=== PATIENT | female | born 1995 | race Caucasian/White ===

== ENCOUNTER 2018-10-28 17:39 | Inpatient (IN) | payer OTHER ==
[~2018-10-28] VITALS: Ht 170.2 cm; Wt 135.0 kg
[2018-10-28 18:14] VITALS: Ht 170.2 cm; Wt 135.0 kg
--- NOTE | 2018-10-28 19:39 | HP ---
Date/Time of Note Date/Time of Note DATE: 10/28/18 TIME: 19:36 OB - History Hx of Present Chief Complaint: elevated BP Estimated Due Date: Jan 23, 2019 : 1 Para: 0 Spontaneous : 0 Therapeutic : 0 Care: Good Care Ultrasounds: Normal mid trimester US Obstetrical Complications: None Medical Complications: Other (chronic HTN) Past Family/Social History * Past Medical, Surgical, Family and Obstetric Histories reviewed from chart. OB Admission Exam Physical Exam HEENT: WNL Heart: Rhythm Normal Lungs: Clear, Equal Abdomen: WNL Extremities: Normal Reflexes: Normal Heart Rate: 130's Accelerations: Accelerations Present Decelerations: No Decelerations Varibility: Moderate Last 72 hours Lab Results CBC & BMP 10/28/18 18:01 Liver Function Test 10/28/18 18:01 Alanine Aminotransferase (ALT/SGPT) 9 L Albumin 3.6 Alkaline Phosphatase 79 Aspartate Amino Transf (AST/SGOT) 12 L Direct Bilirubin 0.00 Total Protein 7.3 OB Assessment/Plan Reason for admission: other Other Assessment: R/O preeclampsia Plan: Other Other plan: Admit Monitor BP 24 hour urine collection CHRISTAL PEREZ MD Oct 28, 2018 19:39
[2018-10-28] MEDS ORDERED: ACETAMINOPHEN 325 MG TAB PO PRN (20:00)
[2018-10-28] MEDS: LABETALOL 100 MG TAB PO SCH (21:29)
[2018-10-29] MEDS: DOCUSATE SODIUM 100 MG CAP PO SCH (08:58)
[2018-10-29] MEDS: PRENATAL VITAMIN PO SCH (08:58)
[2018-10-29] MEDS: FERROUS SULFATE (EC) 325 MG TAB PO SCH (08:58)
[2018-10-29] MEDS: LABETALOL 100 MG TAB PO SCH ×2 (08:58→21:40)
--- NOTE | 2018-10-29 15:13 | QN ---
Documentation Comment No complaint Afebrile VSS Strip Reactive Await 24 hour urine collection. CHRISTAL PEREZ MD Oct 29, 2018 15:13
[2018-10-29] MEDS ORDERED: LABETALOL 100 MG TAB PO ONE (22:30)
[2018-10-30] MEDS ORDERED: LABETALOL 100 MG TAB PO SCH (09:00)
[2018-10-30] MEDS: FERROUS SULFATE (EC) 325 MG TAB PO SCH (09:38)
[2018-10-30] MEDS: DOCUSATE SODIUM 100 MG CAP PO SCH (09:38)
[2018-10-30] MEDS: PRENATAL VITAMIN PO SCH (09:38)
--- NOTE | 2018-10-30 13:08 | QN ---
Documentation Comment Patient has no complaint Afebrile BP 140's-150's/70's Strip Reactive 24 hour urine collection volume 600 ml, total protein 30 mg Case discussed with Dr Ha ([facility]) who recommends to d/c patient home and have the patient repeat 24 hour urine collection at home Labetalol is increased to 200 mg PO BID. CHRISTAL PEREZ MD Oct 30, 2018 13:08
--- NOTE | 2018-10-30 13:09 | DS ---
Date/Time of Note Date/Time of Note DATE: 10/30/18 TIME: 13:08 Obstetrical Discharge Record Final Diagnosis Final Diagnosis: not delivered Other Final Diagnosis chronic hypertension Condition on Discharge Physical Assessment Voiding: Yes Bowel Movement: Yes Calf Tenderness: No Patient Condition: Stable CHRISTAL PEREZ MD Oct 30, 2018 13:09
== END 2018-10-30 14:45 | disposition home or self-care (01) | DRG 833 ==
LOC: OBT 17:39 → L-D 17:40 → OBT 19:28 → PP1 19:28
PROVIDERS: ADMIT Obstetrics & Gynecology; ATTEND Obstetrics & Gynecology
DX: O16.2 Unspecified maternal hypertension, second trimester (principal); Z3A.27 27 weeks gestation of pregnancy
CPT/HCPCS: 76818; 80053; 81001; 82575; 84156; 84560; 85025; G0463

== ENCOUNTER 2018-10-31 14:59 | Outpatient (CLI) | payer OTHER ==
[~2018-10-31] VITALS: Ht 172.7 cm; Wt 134.8 kg
[2018-10-31 16:20] VITALS: Ht 172.7 cm; Wt 134.8 kg
[2018-11-01] MEDS ORDERED: PREN-99 PO (00:20)
[2018-11-01] MEDS ORDERED: CITRACAL PO (00:20)
[2018-11-01] MEDS ORDERED: FER325 PO (00:20)
--- NOTE | 2018-11-01 00:43 | TRIAGE ---
OB Triage Datetime Report Generated by CPN: 11/01/2018 00:43 Datetime: 10/31/2018 19:48 Monitor Mode: External Datetime: 10/31/2018 19:26 Monitor Mode: External US Pain Assessment Pain Scale: 0 Pain Presence: None/Denies Pain Type: N/A Datetime: 10/31/2018 19:00 Monitor Mode: External Resting Tone [place]: Relaxed Heart Rate FHR Baseline Rate: 150 Monitor Mode: External US FHR Baseline Changes: No Baseline Change Variability: Moderate 6-25 bpm Accelerations: 15X15 Decelerations: None Category: Category I Pain Presence: None/Denies Datetime: 10/31/2018 18:00 Monitor Mode: External Resting Tone [place]: Relaxed Heart Rate FHR Baseline Rate: 145 Monitor Mode: External US FHR Baseline Changes: No Baseline Change Variability: Moderate 6-25 bpm Accelerations: 15X15 Decelerations: None Category: Category I Pain Presence: None/Denies Datetime: 10/31/2018 17:58 Stage of : OB Triage Datetime: 10/31/2018 17:00 Labor Evaluation Frequency: x1 UC noted this hour Monitor Mode: External Duration (sec)2399: 60 Quality: Mild Pattern: Normal: <= 5 Contractions in 10 Minutes Resting Tone [place]: Relaxed Heart Rate FHR Baseline Rate: 140 Monitor Mode: External US FHR Baseline Changes: No Baseline Change Variability: Moderate 6-25 bpm Accelerations: 15X15 Decelerations: None Category: Category I Pain Presence: None/Denies Datetime: 10/31/2018 16:21 Time of Arrival: 10/31/2018 14:48 EGA: 28.0 Arrived By: Ambulatory Arrived From: [facility] Office Chief Complaint: 24 hr urine collection Movement: Present Contractions: Denies/Absent Rupture of Membranes: Denies Vaginal Bleeding: Normal Show Vaginal Discharge: Denies Recent Sexual Intercouse: Denies Abdominal Trauma: Not Applicable Patient Complaints: None Time Provider Notified: 10/31/2018 23:34 Provider Notified: HADADIAN Initial Plan: Creatinine clearance, 24 hr urine collection, EFM Datetime: 10/31/2018 16:00 Monitor Mode: External Resting Tone [place]: Relaxed Heart Rate FHR Baseline Rate: 150 Monitor Mode: External US FHR Baseline Changes: No Baseline Change Variability: Moderate 6-25 bpm Accelerations: 15X15 Decelerations: None Category: Category I Pain Presence: None/Denies Datetime: 10/31/2018 15:38 Assessment Type: Ongoing Assessment Maternal Assessment Level of Consciousness: Keenly Alert, Responsive DTR's/Clonus: DTRs 2+; No Clonus Headache: Denies Blurred Vision: No Respiratory Effort: Unlabored; Regular Rhythm; Equal Expansion Breath Sounds, Left: Clear and Equal Breath Sounds, Right: Clear and Equal Nausea/Vomiting: Denies RUQ Epigastric Pain: Denies Lower Extremities Edema: Bilateral Lower Extremities Degree: 1+ Upper Extremities Edema: Bilateral Upper Extremities Degree: 1+ Facial Edema: None Fall Risk Assessment History of Falling: (0) No Secondary Diagnosis: (0) No Ambulatory Aid: (0) Bedrest/Nurse Assist IV Therapy: (0) No Gait: (0) Normal/Bedrest/Immobile Mental Status: (0) Oriented to Own Ability Fall Score: 0 Fall Risk Score Definition: No Risk: No action required Datetime: 10/30/2018 12:22 Maternal Assessment Level of Consciousness: Keenly Alert, Responsive DTR's/Clonus: DTRs 2+ Headache: Denies Blurred Vision: No Nausea/Vomiting: Denies RUQ Epigastric Pain: Denies Facial Edema: None Labor Evaluation Frequency: 0 Monitor Mode: External Resting Tone [place]: Relaxed Heart Rate FHR Baseline Rate: 145 Monitor Mode: External US FHR Baseline Changes: No Baseline Change Variability: Moderate 6-25 bpm Accelerations: 15X15 Decelerations: None Category: Category I Pain Presence: None/Denies Datetime: 10/30/2018 08:03 Assessment Type: Ongoing Assessment Maternal Assessment Level of Consciousness: Keenly Alert, Responsive DTR's/Clonus: DTRs 2+; No Clonus Headache: Denies Blurred Vision: No Respiratory Effort: Unlabored; Regular Rhythm; Equal Expansion Breath Sounds, Left: Clear and Equal Breath Sounds, Right: Clear and Equal Nausea/Vomiting: Denies RUQ Epigastric Pain: Denies Facial Edema: None Fall Risk Assessment History of Falling: (0) No Secondary Diagnosis: (0) No Ambulatory Aid: (0) Bedrest/Nurse Assist IV Therapy: (0) No Gait: (0) Normal/Bedrest/Immobile Mental Status: (0) Oriented to Own Ability Fall Score: 0 Fall Risk Score Definition: No Risk: No action required Datetime: 10/30/2018 07:01 Maternal Assessment Level of Consciousness: Keenly Alert, Responsive DTR's/Clonus: DTRs 2+ Headache: Denies Blurred Vision: No Nausea/Vomiting: Denies RUQ Epigastric Pain: Denies Facial Edema: None Labor Evaluation Frequency: 0 Monitor Mode: External Resting Tone [place]: Relaxed Heart Rate FHR Baseline Rate: 140 Monitor Mode: External US FHR Baseline Changes: No Baseline Change Variability: Moderate 6-25 bpm Accelerations: 15X15 Decelerations: Variable Category: Category II Pain Presence: None/Denies Datetime: 10/30/2018 06:30 Labor Evaluation Frequency: X1 Monitor Mode: External Duration (sec)2399: 40 Quality: Mild Resting Tone [place]: Relaxed Heart Rate FHR Baseline Rate: 155 Monitor Mode: External US Variability: Moderate 6-25 bpm Accelerations: 15X15 Decelerations: None Category: Category I Pain Presence: None/Denies Datetime: 10/30/2018 05:55 Maternal Assessment Level of Consciousness: Keenly Alert, Responsive Headache: Denies Blurred Vision: No Datetime: 10/30/2018 05:30 Labor Evaluation Frequency: 0 Monitor Mode: External Duration (sec)2399: DENIES Resting Tone [place]: Relaxed Heart Rate FHR Baseline Rate: 155 Monitor Mode: External US Variability: Moderate 6-25 bpm Accelerations: 15X15 Decelerations: None Comments: LOSS OF CONTACT AT TIMES,DUE TO PT MOVEMENTS AND BMI. Pain Presence: None/Denies Datetime: 10/30/2018 04:30 Labor Evaluation Frequency: 0 Monitor Mode: External Resting Tone [place]: Relaxed Heart Rate FHR Baseline Rate: 150 Monitor Mode: External US Variability: Moderate 6-25 bpm Accelerations: 15X15 Decelerations: None Category: Category I Datetime: 10/30/2018 03:30 Labor Evaluation Frequency: 0 Monitor Mode: External Resting Tone [place]: Relaxed Heart Rate FHR Baseline Rate: 150 Monitor Mode: External US Variability: Moderate 6-25 bpm Accelerations: 15X15 Decelerations: None Category: Category I Datetime: 10/30/2018 02:31 Heart Rate FHR Baseline Rate: 155 Monitor Mode: External US Variability: Moderate 6-25 bpm Accelerations: 15X15 Comments: Baby aubly very active and difficult to monitor d/t activity and pt BMI Datetime: 10/30/2018 02:27 Stage of : Antepartum Heart Rate FHR Baseline Rate: 155 Monitor Mode: External US Variability: Moderate 6-25 bpm Accelerations: 15X15 Datetime: 10/30/2018 02:00 Labor Evaluation Frequency: 0 Monitor Mode: External Duration (sec)2399: denies Resting Tone [place]: Relaxed Heart Rate FHR Baseline Rate: 155 Monitor Mode: External US Variability: Moderate 6-25 bpm Accelerations: 15X15 Decelerations: None Comments: loss of contact at times. Pain Presence: None/Denies Datetime: 10/30/2018 01:00 Labor Evaluation Frequency: 0 Monitor Mode: External Duration (sec)2399: denies Resting Tone [place]: Relaxed Heart Rate FHR Baseline Rate: 155 Monitor Mode: External US Variability: Moderate 6-25 bpm Accelerations: 15X15 Decelerations: None Pain Presence: None/Denies Datetime: 10/30/2018 00:13 Maternal Assessment Level of Consciousness: Keenly Alert, Responsive DTR's/Clonus: DTRs 2+ Headache: Denies Blurred Vision: No Datetime: 10/30/2018 00:00 Labor Evaluation Frequency: 0 Monitor Mode: External Duration (sec)2399: denies Resting Tone [place]: Relaxed Heart Rate FHR Baseline Rate: 155 Monitor Mode: External US Variability: Moderate 6-25 bpm Accelerations: 10X10 Decelerations: Variable Comments: appropriate for ga 27 weeks. Pain Presence: None/Denies Datetime: 10/29/2018 23:00 Labor Evaluation Frequency: 0 Monitor Mode: External Duration (sec)2399: denies Resting Tone [place]: Relaxed Heart Rate FHR Baseline Rate: 155 Monitor Mode: External US Variability: Moderate 6-25 bpm Accelerations: 10X10 Decelerations: None Pain Presence: None/Denies Datetime: 10/29/2018 22:00 Labor Evaluation Frequency: 0 Monitor Mode: External Duration (sec)2399: denies Resting Tone [place]: Relaxed Heart Rate FHR Baseline Rate: 155 Variability: Moderate 6-25 bpm Comments: very difficult to trace fetus pt is extrmely obese. Datetime: 10/29/2018 21:00 Labor Evaluation Frequency: x1 Monitor Mode: External Duration (sec)2399: 50 Quality: Mild Resting Tone [place]: Relaxed Heart Rate FHR Baseline Rate: 155 Monitor Mode: External US Variability: Moderate 6-25 bpm Accelerations: 15X15 Decelerations: None Pain Presence: None/Denies Datetime: 10/29/2018 19:57 Labor Evaluation Frequency: 0 Monitor Mode: External Duration (sec)2399: denies Resting Tone [place]: Relaxed Heart Rate FHR Baseline Rate: 150 Monitor Mode: External US Variability: Moderate 6-25 bpm Accelerations: 15X15 Decelerations: Variable Comments: appropriate for ga. 27 weeks. Pain Presence: None/Denies Datetime: 10/29/2018 19:14 Stage of : Antepartum Assessment Type: Ongoing Assessment Maternal Assessment Level of Consciousness: Keenly Alert, Responsive DTR's/Clonus: DTRs 2+; No Clonus Headache: Denies Blurred Vision: No Respiratory Effort: Unlabored; Regular Rhythm; Equal Expansion Breath Sounds, Left: Clear and Equal Breath Sounds, Right: Clear and Equal Nausea/Vomiting: Denies RUQ Epigastric Pain: Denies Lower Extremities Edema: None Degree: None Upper Extremities Edema: None Degree: None Facial Edema: None Temperature Route: Oral Fall Risk Assessment History of Falling: (0) No Secondary Diagnosis: (0) No Ambulatory Aid: (0) Bedrest/Nurse Assist IV Therapy: (0) No Gait: (0) Normal/Bedrest/Immobile Mental Status: (0) Oriented to Own Ability Fall Score: 0 Fall Risk Score Definition: No Risk: No action required Pain Presence: None/Denies Datetime: 10/29/2018 19:00 Pattern: Normal: <= 5 Contractions in 10 Minutes Resting Tone [place]: Relaxed Contraction Comments: no uc Heart Rate FHR Baseline Rate: 155 Monitor Mode: External US Variability: Moderate 6-25 bpm Accelerations: 15X15 Decelerations: None Category: Category I Pain Presence: None/Denies Pain Type: N/A Datetime: 10/29/2018 18:00 Maternal Assessment Level of Consciousness: Keenly Alert, Responsive DTR's/Clonus: DTRs 2+ Headache: Denies Blurred Vision: No Nausea/Vomiting: Denies RUQ Epigastric Pain: Denies Facial Edema: None Pattern: Normal: <= 5 Contractions in 10 Minutes Resting Tone [place]: Relaxed Contraction Comments: no uc Heart Rate FHR Baseline Rate: 155 Monitor Mode: External US Variability: Moderate 6-25 bpm Accelerations: 15X15 Decelerations: None Category: Category I Pain Presence: None/Denies Pain Type: N/A Datetime: 10/29/2018 17:01 Pattern: Normal: <= 5 Contractions in 10 Minutes Resting Tone [place]: Relaxed Contraction Comments: no uc Heart Rate FHR Baseline Rate: 155 Monitor Mode: External US Variability: Moderate 6-25 bpm Accelerations: 15X15 Decelerations: Variable Category: Category II Pain Presence: None/Denies Pain Type: N/A Datetime: 10/29/2018 16:01 Pattern: Normal: <= 5 Contractions in 10 Minutes Resting Tone [place]: Relaxed Contraction Comments: no uc Heart Rate FHR Baseline Rate: 155 Monitor Mode: Internal Scalp Electrode Variability: Moderate 6-25 bpm Accelerations: 15X15 Decelerations: None Category: Category I Pain Presence: None/Denies Pain Type: N/A Datetime: 10/29/2018 14:59 Pattern: Normal: <= 5 Contractions in 10 Minutes Resting Tone [place]: Relaxed Contraction Comments: no uc Heart Rate FHR Baseline Rate: 155 Monitor Mode: External US Variability: Moderate 6-25 bpm Accelerations: 15X15 Decelerations: None Category: Category I Pain Presence: None/Denies Pain Type: N/A Datetime: 10/29/2018 14:01 Pattern: Normal: <= 5 Contractions in 10 Minutes Resting Tone [place]: Relaxed Contraction Comments: no uc Heart Rate FHR Baseline Rate: 155 Monitor Mode: External US Variability: Moderate 6-25 bpm Accelerations: 15X15 Decelerations: None Category: Category I Pain Presence: None/Denies Pain Type: N/A Datetime: 10/29/2018 13:01 Pattern: Normal: <= 5 Contractions in 10 Minutes Resting Tone [place]: Relaxed Contraction Comments: no uc Heart Rate FHR Baseline Rate: 155 Monitor Mode: External US Variability: Moderate 6-25 bpm Accelerations: 15X15 Decelerations: None Category: Category I Datetime: 10/29/2018 12:01 Pattern: Normal: <= 5 Contractions in 10 Minutes Resting Tone [place]: Relaxed Contraction Comments: no uc Heart Rate FHR Baseline Rate: 155 Monitor Mode: External US Variability: Moderate 6-25 bpm Accelerations: 15X15 Decelerations: None Category: Category I Pain Presence: None/Denies Pain Type: N/A Datetime: 10/29/2018 11:01 Pattern: Normal: <= 5 Contractions in 10 Minutes Resting Tone [place]: Relaxed Contraction Comments: no uc Heart Rate FHR Baseline Rate: 155 Monitor Mode: External US Variability: Moderate 6-25 bpm Decelerations: None Category: Category I Pain Presence: None/Denies Pain Type: N/A Datetime: 10/29/2018 10:46 Resting Tone [place]: Relaxed Datetime: 10/29/2018 08:59 Pattern: Normal: <= 5 Contractions in 10 Minutes Resting Tone [place]: Relaxed Contraction Comments: NO UC Heart Rate FHR Baseline Rate: 155 Monitor Mode: External US Variability: Moderate 6-25 bpm Category: Category I Pain Presence: None/Denies Pain Type: N/A Datetime: 10/29/2018 08:01 Pattern: Normal: <= 5 Contractions in 10 Minutes Resting Tone [place]: Relaxed Contraction Comments: no uc Heart Rate FHR Baseline Rate: 155 Monitor Mode: External US Variability: Moderate 6-25 bpm Accelerations: 15X15 Decelerations: None Category: Category I Pain Presence: None/Denies Pain Type: N/A Datetime: 10/29/2018 07:27 Assessment Type: Ongoing Assessment Maternal Assessment Level of Consciousness: Keenly Alert, Responsive DTR's/Clonus: DTRs 2+; No Clonus Headache: Denies Blurred Vision: No Respiratory Effort: Unlabored; Regular Rhythm; Equal Expansion Breath Sounds, Left: Clear and Equal Breath Sounds, Right: Clear and Equal Nausea/Vomiting: Denies RUQ Epigastric Pain: Denies Lower Extremities Edema: None Degree: None Upper Extremities Edema: None Degree: None Facial Edema: None Fall Risk Assessment History of Falling: (0) No Secondary Diagnosis: (0) No Ambulatory Aid: (0) Bedrest/Nurse Assist IV Therapy: (0) No Gait: (0) Normal/Bedrest/Immobile Mental Status: (0) Oriented to Own Ability Fall Score: 0 Fall Risk Score Definition: No Risk: No action required Datetime: 10/29/2018 07:00 Monitor Mode: External Resting Tone [place]: Relaxed Heart Rate FHR Baseline Rate: 155 Monitor Mode: External US Variability: Moderate 6-25 bpm Accelerations: 15X15 Decelerations: None Comments: APPROPRIATE FOR GESTATIONAL AGE 27.6 WEEKS. Datetime: 10/29/2018 06:00 Monitor Mode: External Resting Tone [place]: Relaxed Heart Rate FHR Baseline Rate: 150 Monitor Mode: External US Variability: Moderate 6-25 bpm Accelerations: 15X15 Decelerations: None Comments: APPROPRIATE FOR GESTATIONAL AGE 27.6 WEEKS. Datetime: 10/29/2018 05:13 Stage of : Antepartum Maternal Assessment Level of Consciousness: Keenly Alert, Responsive Headache: Denies Blurred Vision: No Temperature Route: Oral Pain Presence: None/Denies Datetime: 10/29/2018 05:00 Monitor Mode: External Resting Tone [place]: Relaxed Heart Rate FHR Baseline Rate: 150 Monitor Mode: External US Variability: Moderate 6-25 bpm Accelerations: 15X15 Decelerations: None Comments: APPROPRIATE FOR GESTATIONAL AGE 27.6 WEEKS. Datetime: 10/29/2018 04:00 Monitor Mode: External Resting Tone [place]: Relaxed Heart Rate FHR Baseline Rate: 150 Monitor Mode: External US Variability: Moderate 6-25 bpm Accelerations: 15X15 Decelerations: None Comments: APPROPRIATE FOR GESTATIONAL AGE 24.6 WEEKS. Datetime: 10/29/2018 03:00 Monitor Mode: External Resting Tone [place]: Relaxed Heart Rate FHR Baseline Rate: 150 Monitor Mode: External US Variability: Moderate 6-25 bpm Accelerations: 15X15 Decelerations: None Comments: APPROPRIATE FOR GESTATIONAL AGE 27.6 WEEKS. Datetime: 10/29/2018 02:00 Monitor Mode: External Resting Tone [place]: Relaxed Heart Rate FHR Baseline Rate: 150 Monitor Mode: External US Variability: Moderate 6-25 bpm Accelerations: 15X15 Decelerations: None Comments: APPROPRIATE FOR GESTATIONAL AGE 27.6 WEEKS. Datetime: 10/29/2018 01:11 Pain Presence: None/Denies Datetime: 10/29/2018 01:00 Maternal Assessment Level of Consciousness: Keenly Alert, Responsive Headache: Denies Blurred Vision: No Monitor Mode: External Resting Tone [place]: Relaxed Heart Rate FHR Baseline Rate: 155 Monitor Mode: External US Variability: Moderate 6-25 bpm Accelerations: 15X15 Decelerations: None Comments: APPROPRIATE FOR GESTATIONAL AGE 27.6 WEEKS. Datetime: 10/29/2018 00:00 Stage of : Antepartum Temperature Route: Oral Monitor Mode: External Resting Tone [place]: Relaxed Interventions: Side to Side Heart Rate FHR Baseline Rate: 160 Monitor Mode: External US Variability: Moderate 6-25 bpm Accelerations: 15X15 Decelerations: Variable Category: Category II Pain Presence: None/Denies Datetime: 10/28/2018 23:43 Stage of : Antepartum Datetime: 10/28/2018 23:00 Monitor Mode: External Resting Tone [place]: Relaxed Heart Rate FHR Baseline Rate: 155 Monitor Mode: External US Variability: Moderate 6-25 bpm Accelerations: 15X15 Decelerations: None Comments: APPROPRIATE FOR GESTATIONAL AGE 27.5 WEEKS. Datetime: 10/28/2018 22:43 Stage of : Antepartum Datetime: 10/28/2018 22:00 Monitor Mode: External Quality: Mild Resting Tone [place]: Relaxed Heart Rate FHR Baseline Rate: 150 Monitor Mode: External US Variability: Moderate 6-25 bpm Accelerations: 15X15 Decelerations: None Comments: APPROPRIATE FOR GESTATIONAL AGE 27.5 WEEKS. Datetime: 10/28/2018 21:43 Stage of : Antepartum Datetime: 10/28/2018 21:00 Monitor Mode: External Datetime: 10/28/2018 20:53 Comments: LOSS OF CONTACT DUE TO PT SITTING UP IN BED EATING. Datetime: 10/28/2018 20:43 Stage of : Antepartum Assessment Type: Admission Assessment Maternal Assessment Level of Consciousness: Keenly Alert, Responsive DTR's/Clonus: DTRs 2+; No Clonus Headache: Denies Blurred Vision: No Respiratory Effort: Unlabored; Regular Rhythm; Equal Expansion Breath Sounds, Left: Clear and Equal Breath Sounds, Right: Clear and Equal Nausea/Vomiting: Denies RUQ Epigastric Pain: Denies Lower Extremities Edema: None Degree: None Upper Extremities Edema: None Degree: None Facial Edema: None Temperature Route: Oral Fall Risk Assessment History of Falling: (0) No Secondary Diagnosis: (0) No Ambulatory Aid: (0) Bedrest/Nurse Assist IV Therapy: (0) No Gait: (0) Normal/Bedrest/Immobile Mental Status: (0) Oriented to Own Ability Fall Score: 0 Fall Risk Score Definition: No Risk: No action required Monitor Mode: External Monitor Mode: External US Pain Presence: None/Denies Datetime: 10/28/2018 18:51 Stage of : OB Triage Maternal Assessment Level of Consciousness: Keenly Alert, Responsive DTR's/Clonus: DTRs 1+ Headache: Denies Breath Sounds, Left: Clear and Equal Breath Sounds, Right: Clear and Equal Nausea/Vomiting: Denies RUQ Epigastric Pain: Denies Labor Evaluation Frequency: NONE Monitor Mode: External Resting Tone [place]: Relaxed Heart Rate FHR Baseline Rate: 145 Monitor Mode: External US Variability: Moderate 6-25 bpm Accelerations: 15X15 Decelerations: None Category: Category I Pain Assessment Pain Scale: 0 Pain Presence: None/Denies Pain Type: N/A Pain Goal: 3 Vaginal Exam Membrane Status: Intact Datetime: 10/28/2018 18:09 Maternal Assessment Level of Consciousness: Keenly Alert, Responsive DTR's/Clonus: DTRs 1+ Headache: Denies Blurred Vision: No Respiratory Effort: Unlabored Breath Sounds, Left: Clear and Equal Breath Sounds, Right: Clear and Equal Nausea/Vomiting: Denies RUQ Epigastric Pain: Denies Facial Edema: None Labor Evaluation Frequency: NONE Monitor Mode: External Resting Tone [place]: Relaxed Heart Rate FHR Baseline Rate: 145 Monitor Mode: External US Variability: Moderate 6-25 bpm Accelerations: 15X15 Decelerations: None Category: Category I Pain Assessment Pain Scale: 0 Pain Presence: None/Denies Pain Type: N/A Pain Goal: 3 Vaginal Exam Membrane Status: Intact Datetime: 10/28/2018 17:47 Stage of : OB Triage Datetime: 10/28/2018 17:32 Time of Arrival: 10/28/2018 17:32 EGA: 27.4 Arrived By: Ambulatory Arrived From: Home Chief Complaint: PT CAME IN FROM [facility] OFFICE FOR HIGH BLOOD PRESSURES AT CLINIC 151/84. PT DENIES AN Y S/S OF PRE-ECLAMPSIA AT THIS TIME. PT STATES + MOVEMENT Movement: Present Contractions: Denies/Absent Rupture of Membranes: Denies Vaginal Discharge: Denies Recent Sexual Intercouse: Denies Abdominal Trauma: Not Applicable Additional Patient Complaints: NONE Provider Notified: ANA Initial Plan: PIH PANEL, BPP, VANDANA, NST
--- NOTE | 2018-11-01 05:53 | PN ---
Triage Information Date/Time Reason for visit: 24-hour urine collection and result Weeks of Gestation 28 weeks /Para G1 Diabetes: none Hypertention: essential Objective Heart Rate: 130's Contractions: None Results/Medications Result Diagram: 10/31/18 1605 10/31/18 1605 Results 24 hrs Laboratory Tests Test 10/31/18 15:40 10/31/18 16:05 Urine Random Creatinine 201.52 Urine Collection Duration 24 Urine Total Volume 24 Hours 800 Urine Creatinine Timed 24 Creatinine Clearance 254.4 H Urine Total Volume (Protein) 800 Urine Total Protein 24 Hour 56.0 White Blood Count 8.1 # Red Blood Count 3.36 L Hemoglobin 9.3 L Hematocrit 28.9 L Mean Corpuscular Volume 86.0 Mean Corpuscular Hemoglobin 27.7 L Mean Corpuscular Hemoglobin Concent 32.2 Red Cell Distribution Width 14.6 H Platelet Count 295 Mean Platelet Volume 10.2 Neutrophils % 68.0 Lymphocytes % 21.8 Monocytes % 8.5 Eosinophils % 0.9 Basophils % 0.4 Nucleated Red Blood Cells % 0.0 Neutrophils # 5.5 Lymphocytes # 1.8 Monocytes # 0.7 Eosinophils # 0.1 Basophils # 0.0 Nucleated Red Blood Cells # 0.0 Sodium Level 137 Potassium Level 3.4 L Chloride Level 106 Carbon Dioxide Level 21 Anion Gap 10 Blood Urea Nitrogen 3 L Creatinine 0.43 L Est Glomerular Filtrat Rate mL/min > 60 Glucose Level 88 Uric Acid 4.9 Calcium Level 9.1 Total Bilirubin 0.3 Direct Bilirubin 0.00 Indirect Bilirubin 0.3 Aspartate Amino Transf (AST/SGOT) 21 Alanine Aminotransferase (ALT/SGPT) 17 Alkaline Phosphatase 81 Total Protein 7.0 Albumin 3.3 Globulin 3.70 H Albumin/Globulin Ratio 0.89 Disposition: Discharge Assessment/Plan 23 years old 1 with single intrauterine at 28 weeks and ch ronic hypertension presents for PIH lab. She has collected 24-hour urine. She states good movement. She denies nausea, vomiting, shortness of breath, chest pain, headache, visual changes, vaginal bleeding or LOF. -FHR: No sign of metabolic acidosis- Category I -Contractions: None -PIH labs, CBC and CMP are normal. Total 24-hour urine volume is 800, urine protein in normal range -Ultrasound performed: Normal VANDANA, BPP 8 out of 8 -Symptoms and sign of labor, preeclampsia, kick count discussed with patient, she voiced understanding. All of her questions answered. -Patient was discharged home in stable condition with the appropriate discharge instructions provided. I would like patient to have close follow-up with her primary physician or outpatient clinic in 1-2 days or return to triage for worsening symptoms or any other urgent concerns. TRACI BAILEY Nov 01, 2018 05:53
== END 2018-11-01 00:30 | disposition home or self-care (01) ==
LOC: OBT 14:59 → L-D 15:01 → OBT 11-01 00:30
PROVIDERS: ATTEND Obstetrics & Gynecology
DX: O16.3 Unspecified maternal hypertension, third trimester (principal); Z3A.28 28 weeks gestation of pregnancy
CPT/HCPCS: 76818; 80053; 82575; 84156; 84560; 85025; Z7500; G0463

== ENCOUNTER 2019-01-06 16:52 | Inpatient (IN) | payer OTHER ==
[~2019-01-06] VITALS: Ht 172.7 cm; Wt 138.1 kg
[~2019-01-06 16:52] MED LIST: CITRACAL PO; FER325 PO; PREN-99 PO
[2019-01-06 17:02] VITALS: Ht 172.7 cm; Wt 138.1 kg
[2019-01-06] MEDS ORDERED: AMPICILLIN 2 GM/NS (PMX) 100 ML ONE (19:52)
[2019-01-06] MEDS ORDERED: OXYTOCIN 30 UNITS/LR 500 ML IV PRN (20:00)
[2019-01-06] MEDS ORDERED: CARBOPROST 250 MCG INJ IM PRN (20:00)
[2019-01-06] MEDS ORDERED: OXYTOCIN 30 UNITS/LR 500 ML IV SCH (20:00)
[2019-01-06] MEDS ORDERED: AMPICILLIN 2 GM/NS (PMX) 100 ML IV ONE (20:00)
[2019-01-06] MEDS ORDERED: METHYLERGONOVINE 0.2 MG INJ IM PRN (20:00)
[2019-01-06] MEDS ORDERED: LIDOCAINE 1% (MPF) 30 ML INJ INJ PRN (20:00)
[2019-01-06] MEDS ORDERED: MISOPROSTOL 200 MCG TAB PR PRN (20:00)
[2019-01-06] MEDS: LACTATED RINGER'S 1,000 ML IV SCH (20:01)
[2019-01-06] MEDS: LABETALOL 200 MG TAB PO SCH (21:15)
[2019-01-06] MEDS: AMPICILLIN 1 GM/NS (PMX) 50 ML IV SCH (22:30)
[2019-01-07] MEDS: AMPICILLIN 1 GM/NS (PMX) 50 ML IV SCH ×6 (00:10→23:52)
[2019-01-07] MEDS: LACTATED RINGER'S 1,000 ML IV SCH ×2 (00:11→10:01)
[2019-01-07] MEDS: LABETALOL 200 MG TAB PO SCH (09:33)
[2019-01-07] MEDS ORDERED: MAGNESIUM SULFATE 20 GM/500 ML 500 ML IV SCH (09:51)
[2019-01-07] MEDS ORDERED: CA GLUCONATE (GM) 10% 10ML INJ IV PRN (10:00)
[2019-01-07] MEDS ORDERED: MAGNESIUM SULFATE 4 GM/100 ML 100 ML IV SCH (10:00)
[2019-01-07] MEDS: MISOPROSTOL 50 MCG CAPSULE PO SCH ×3 (11:55→21:30)
[2019-01-07] MEDS: MAGNESIUM SULFATE 40GM/1000ML 1,000 ML IV SCH (12:11)
[2019-01-08] MEDS: MISOPROSTOL 50 MCG CAPSULE PO SCH ×3 (02:02→11:36)
[2019-01-08] MEDS: AMPICILLIN 1 GM/NS (PMX) 50 ML IV SCH ×6 (04:05→22:52)
[2019-01-08] MEDS: LACTATED RINGER'S 1,000 ML IV SCH ×4 (05:01→21:04)
[2019-01-08] MEDS: MAGNESIUM SULFATE 40GM/1000ML 1,000 ML IV SCH (07:41)
[2019-01-08] MEDS: LABETALOL 200 MG TAB PO SCH ×3 (08:44→21:02)
[2019-01-08] MEDS ORDERED: OXYTOCIN 30 UNITS/LR 500 ML IV SCH (16:00)
[2019-01-09] MEDS: BUTORPHANOL 2 MG INJ IV PRN ×2 (03:06→06:16)
[2019-01-09] MEDS: AMPICILLIN 1 GM/NS (PMX) 50 ML IV SCH ×4 (03:09→14:49)
[2019-01-09] MEDS: MAGNESIUM SULFATE 40GM/1000ML 1,000 ML IV SCH (03:10)
[2019-01-09] MEDS: LABETALOL 200 MG TAB PO SCH ×2 (09:09→21:07)
[2019-01-09] MEDS ORDERED: ONDANSETRON 4 MG INJ IV PRN (09:30)
[2019-01-09] MEDS ORDERED: NALOXONE (0.4 MG/ML) INJ IV PRN (09:30)
[2019-01-09] MEDS ORDERED: DIPHENHYDRAMINE 50 MG INJ IV PRN (09:30)
[2019-01-09] MEDS ORDERED: FENTAnyl 2MCG/ML-ROPIV 0.2% 100 ML BAG EPI SCH (09:30)
[2019-01-09] MEDS: LACTATED RINGER'S 1,000 ML IV SCH (10:16)
[2019-01-09] MEDS: OXYTOCIN 30 UNITS/LR 500 ML IV SCH ×2 (17:50→18:02)
[2019-01-09] MEDS ORDERED: DIPHENOXYLATE/ATROPINE TAB PO ONE (18:00)
[2019-01-09] MEDS ORDERED: LABETALOL HCL 20MG INJ ONE (18:47)
[2019-01-09] MEDS ORDERED: LABETALOL HCL 20MG INJ IV ONE (18:50)
[2019-01-09 20:40] VITALS: BP 130/69; PULSE 110; RESP 19
[2019-01-09] MEDS ORDERED: MISOPROSTOL 200 MCG TAB PR PRN (21:00)
[2019-01-09] MEDS ORDERED: CARBOPROST 250 MCG INJ IM PRN (21:00)
[2019-01-09] MEDS ORDERED: DIBUCAINE 1% 30 GM OINT TOP PRN (21:00)
[2019-01-09] MEDS ORDERED: HYDROCODONE/APAP (5/325) TAB PO PRN (21:00)
[2019-01-09] MEDS ORDERED: OXYTOCIN 30 UNITS/LR 500 ML IV PRN (21:00)
[2019-01-09] MEDS ORDERED: BENZOCAINE 20% 56 ML SPRAY TOP PRN (21:00)
[2019-01-09] MEDS ORDERED: ACETAMINOPHEN 325 MG TAB PO PRN (21:00)
[2019-01-09] MEDS ORDERED: WITCH HAZEL/GLYCERIN PAD PR PRN (21:00)
[2019-01-09] MEDS: SENNA/DOCUSATE NA (8.6MG/50MG) TAB PO SCH (21:06)
[2019-01-09 21:40] VITALS: BP 132/63; PULSE 122; RESP 20
[2019-01-09 22:40] VITALS: BP 117/55; PULSE 103; RESP 18
[2019-01-09 23:40] VITALS: BP 114/53; PULSE 106; RESP 17
[2019-01-10] VITALS (15 sets, daily range): BP systolic 94–116; BP diastolic 50–70; PULSE 85–112; RESP 17–20
[2019-01-10] MEDS: IBUPROFEN 600 MG TAB PO SCH ×4 (00:20→18:12)
[2019-01-10] MEDS: LACTATED RINGER'S 1,000 ML IV* SCH ×4 (00:21→20:34)
[2019-01-10] MEDS: MAGNESIUM SULFATE 40GM/1000ML 1,000 ML IV SCH (00:24)
[2019-01-10] MEDS: SENNA/DOCUSATE NA (8.6MG/50MG) TAB PO SCH ×2 (09:00→21:29)
[2019-01-10] MEDS: LABETALOL 200 MG TAB PO SCH ×2 (10:02→21:29)
[2019-01-11] MEDS: IBUPROFEN 600 MG TAB PO SCH ×3 (00:29→11:42)
[2019-01-11 00:31] VITALS: BP 132/60; PULSE 113; RESP 18
[2019-01-11 04:15] VITALS: BP 132/69; PULSE 105; RESP 18
[2019-01-11] MEDS: LACTATED RINGER'S 1,000 ML IV* SCH (04:34)
[2019-01-11 08:00] VITALS: BP 138/74; PULSE 104; RESP 18
[2019-01-11] MEDS: SENNA/DOCUSATE NA (8.6MG/50MG) TAB PO SCH (09:00)
[2019-01-11] MEDS ORDERED: DIPHTH/TET/ACEL PERTUSS (ADULT) 0.5 ML VIAL IM* ONE (09:00)
[2019-01-11] MEDS: LABETALOL 200 MG TAB PO SCH (09:39)
[2019-01-11 09:40] VITALS: BP 127/80; PULSE 95; RESP 20
== END 2019-01-11 16:50 | disposition home or self-care (01) | DRG 806 ==
LOC: OBT 16:52 → L-D 16:57 → OBT 18:26 → L-D 18:44 → PP1 01-09 20:31
PROVIDERS: ADMIT Obstetrics & Gynecology; ATTEND Obstetrics & Gynecology
PROC: 10E0XZZ Delivery of Products of Conception, External Approach (ICD-10-PCS; principal; 2019-01-09)
PROC: 0HQ9XZZ Repair Perineum Skin, External Approach (ICD-10-PCS; 2019-01-09)
PROC: 10907ZC Drainage of Amniotic Fluid, Therapeutic from Products of Conception, Via Natural or Artificial Opening (ICD-10-PCS; 2019-01-09)
DX: O70.0 First degree perineal laceration during delivery (principal); O14.93 Unspecified pre-eclampsia, third trimester; Z37.0 Single live birth; O13.3 Gestational [pregnancy-induced] hypertension without significant proteinuria, third trimester; Z3A.38 38 weeks gestation of pregnancy
CPT/HCPCS: 62322; 76815; 76818; 80053; 81001; 83735; 84560; 85025; 85610; 85730; 86592; 86850; 86900; 86901; 88307; G0463; J0290; J0595; J2590; J3010; J7120